=== PATIENT | male | born 1960 | race Caucasian/White ===

== ENCOUNTER 2020-06-16 14:17 | Emergency (ER) | payer OTHER ==
--- NOTE | 2020-06-16 16:38 | ED ---
General Adult HPI - General Stated complaint: o2 sat 84 to 88/sob Source: patient Mode of arrival: ambulatory Limitations: no limitations - History of Present Illness Initial comments: 59-year-old male presents to the emergency department with chief complaint of cough and congestion. He tested positive covid. States he is having symptoms for past several days along with a nonproductive cough and occasional exertional dyspnea. He denies any chest pain this time. Does report chills and some fevers at home. He was advised by his primary care physician to come to the emergency department for further evaluation. States he previously used an inhaler and believes to have asthma but was never officially diagnosed with it. - Related Data Allergies Allergy/AdvReac Type Severity Reaction Status Date / Time No Known Allergies Allergy Verified 06/16/20 16:35 Review of Systems ROS Statement: Those systems with pertinent positive or pertinent negative responses have been documented in the HPI. ROS Other: All systems not noted in ROS Statement are negative. Past Medical History Past Medical History: No Reported History History of Any Multi-Drug Resistant Organisms: None Reported Past Surgical History: Hernia Repair Past Psychological History: No Psychological Hx Reported Smoking Status: Never smoker Past Alcohol Use History: None Reported Past Drug Use History: None Reported General Exam Limitations: no limitations Course Vital Signs 06/16/20 06/16/20 06/16/20 16:29 16:44 17:47 Temperature 99.3 F Pulse Rate 80 77 73 Respiratory 20 20 18 Rate Blood Pressure 130/80 149/90 132/84 O2 Sat by Pulse 92 L 93 L 93 L Oximetry 06/16/20 06/16/20 06/16/20 18:44 19:09 19:17 Temperature 97.6 F Pulse Rate 77 74 Respiratory 20 18 18 Rate Blood Pressure 133/85 143/88 O2 Sat by Pulse 93 L 94 L Oximetry Medical Decision Making - Medical Decision Making 59-year-old male presents to the emergency department with a chief complaint of cough and congestion. On physical examination, patient does not appear to be significant respiratory distress. Oxygen saturation on room air is between 93- 94%. He denies any chest pain at this time. He was sent here for monoclonal antibody by his primary care physician. Infusion was administered. Patient states he would like to be discharged. Case discussed with . - Lab Data Lab Results 06/16/20 Range/Units 16:52 Coronavirus (PCR) Detected A (Not Detectd) Disposition Clinical Impression: COVID-19 Disposition: HOME SELF-CARE Condition: Stable Instructions (If sedation given, give patient instructions): Coronavirus Disease 2019 (COVID-19) Additional Instructions: Please return to the Emergency Department if symptoms worsen or any other concerns. Is patient prescribed a controlled substance at d/c from ED?: No Referrals: Juan Jose Gallardo MD [Primary Care Provider] - 1-2 days Time of Disposition: 17:13
[2020-06-16] MEDS ORDERED: BAMLANIVIMAB (EUA) 700 MG, ETESEVIMAB (EUA) 1,400 MG in SODIUM CHLORIDE 0.9% 50 ML IVPB ONE (18:00)
[2020-06-16] MEDS ORDERED: SODIUM CHLORIDE 0.9% 50 ML IVPB ONE (18:30)
[2020-06-16 19:10] VITALS: RESP 18
[2020-06-16 19:19] VITALS: BP 143/88; PULSE 74; TEMP 97.6
== END 2020-06-16 19:31 | disposition home or self-care (01) ==
LOC: EC 14:17
DX: U07.1 COVID-19 (principal)
CPT/HCPCS: 87635; 96365; 99284